=== PATIENT | female | born 1950 | race Caucasian/White ===

== ENCOUNTER → 2018-11-04 10:10 | Outpatient (CLI) | payer MEDICARE, BC, SELFPAY ==
--- NOTE | 2018-11-04 10:18 | MRI_ITS ---
STUDY: MRI LUMBAR SPINE WITHOUT CONTRAST REASON FOR EXAM: Female, 68 years old. Low back pain. TECHNIQUE: Standardized fat and water weighted pulse sequences were obtained in the sagittal and axial planes. COMPARISON: None FINDINGS: T12-L1: Normal endplates. Normal disc height, hydration and morphology. Normal bilateral facet joints. Normal central canal and bilateral lateral recesses. Normal bilateral intervertebral neural foramina. Normal lumbar lordosis. There is grade 1 retrolisthesis at L2-3. There is no substantial scoliosis. Normal conus medullaris that terminates at the T12 level . L1-2: Normal endplates. Normal disc height, hydration and morphology. Normal bilateral facet joints. Normal central canal and bilateral lateral recesses. Normal bilateral intervertebral neural foramina. L2-3: Disc space narrowing. Disc bulge and spurring with a right foraminal disc protrusion, series 6 image . Mild facet spurring. Mild canal stenosis. Right foraminal narrowing. L3-4: Disc space narrowing. Disc bulge and spurring flattening the thecal sac. Facet spurring with ligamentum flavum hypertrophy. Mild canal stenosis. Bilateral foraminal narrowing. L4-5: Disc bulge. Mild spurring of the bilateral facet joints. Normal central canal and bilateral lateral recesses. Normal bilateral intervertebral neural foramina. L5-S1: Disc bulge. Mild spurring of the bilateral facet joints. Normal central canal and bilateral lateral recesses. Normal bilateral intervertebral neural foramina. Normal visualized sacral ala. Normal visualized paraspinous soft tissue structures. MRI/Spine Lumbar (Routine) IMPRESSION: Multilevel degenerative changes, as described above. Electronically Signed: Markel Whitney MD at 12:28 EST , Service support ,
== END ==
PROVIDERS: Family Provider Family Medicine; PCP Family Medicine; Referring Provider Anesthesiology Pain Medicine; Visit Provider Anesthesiology Pain Medicine
DX: M54.9 Dorsalgia, unspecified (principal); M79.606 Pain in leg, unspecified
CPT/HCPCS: 72148

== ENCOUNTER → 2022-10-21 | Outpatient (CLI) | payer MEDICARE, BC, SELFPAY | END | disposition home or self-care (01) | LOC: LABSPEC 14:45 | PROVIDERS: PCP Family Medicine; Visit Provider Obstetrics & Gynecology | DX: R30.0 Dysuria (principal) | CPT/HCPCS: 87086; 87088 ==

== ENCOUNTER → 2025-10-24 | Outpatient (CLI) | payer BC, MEDICARE, SELFPAY ==
--- NOTE | 2025-10-24 15:00 | VUL_PTH ---
PATIENT: GEOVANY SERRANO LOC: [facility] U#:[id number] AGE/SX: 75/F ROOM: RE10/24/[address]: Dr. Ольга Pope MD : 1950 BED: DIS: 10/24/2025 SPEC #: [id number] RECD: 10/24/25 16:39 STATUS: VIANCA RESammi #: [id number] LISSETH: 10/24/25 15:[address]: Ольга Pope DEPT: SURGICAL PATHOLOGY RECD BY: Nik Kennedy ENTERED: 10/25/25 11:07 SP TYPE: VULVA BX OTHR DR: Dr. Kwan Seaman MD Tissues: A - Vulva, NOS Procedures: Surgery Specimen Level IV HEADER OPERATION: Vulvar biopsy PRE-OP DIAGNOSIS: Vulvar lesion TISSUE SUBMITTED: A- Vulvar biopsy MICROSCOPIC DIAGNOSIS A. 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 MICROSCOPIC DESCRIPTION Slides are reviewed. GROSS DESCRIPTION A. Received in formalin labeled with the patient's name and date of . Designated as vulvar BX are few, mcclain minute tissue fragments, 0.3 x 0.2 x <0.1 cm in aggregate. Entirely submitted in 1 cassette. Entirety of the specimen may not survive processing. [place] [id number]
== END | disposition home or self-care (01) ==
LOC: LABSPEC 16:56
PROVIDERS: PCP Family Medicine; Referring Provider Urology; Visit Provider Urology
DX: N90.0 Mild vulvar dysplasia (principal)
CPT/HCPCS: 88305